=== PATIENT | male | born 1980 | race Caucasian/White ===

== ENCOUNTER 2024-01-03 18:12 | Emergency (ER) | payer OTHER ==
--- NOTE | 2024-01-03 19:12 | RAD REPORT ---
EXAM DESCRIPTION: CT - Head Brain Wo Cont - 01/03/2024 7:06 pm CLINICAL HISTORY: TRAUMA Fall, seizure, trauma, head injury COMPARISON: No comparisons TECHNIQUE: All CT scans are performed using dose optimization technique as appropriate and may inclu de automated exposure control or mA/KV adjustment according to patient size. FINDINGS: No intracranial hemorrhage, hydrocephalus or extra-axial fluid collection.No areas of brai n edema or evidence of midline shift. The paranasal sinuses and mastoids are clear. The calvarium is intact. IMPRESSION: No acute intracranial abnormality.
--- NOTE | 2024-01-03 19:16 | RAD REPORT ---
EXAM DESCRIPTION: CT - Stone Protocol - 01/03/2024 7:06 pm CLINICAL HISTORY: Flank pain. Flank pain;Hematuria COMPARISON: No comparisons TECHNIQUE: Axial images were obtained without oral or IV contrast. Lack of contrast limits solid org an and vascular assessment. The [id number] spans the entirety of the system partially obscuring uppermost abdomen and lung bases. Coronal reformatted images were obtained and reviewed. All CT scans are performed using dose optimization technique as appropriate and may include automated exposure control or mA/KV adjustment according to patient size. FINDINGS: The lower lung catalan are clear. Imaged portions of the liver and spleen show no suspicious findings on non-contrast imaging. The panc reas and adrenal glands are normal. No pathologic lymphadenopathy in the abdomen or pelvis. No urinary tract stones or obstructive uropathy. No bowel obstruction, free air, free fluid or abscess. Normal appendix noted. No significant bony abnormality. IMPRESSION: No urinary tract stones or obstructive uropathy.
[2024-01-03 19:41] LABS: Absolute Monocytes 0.4 K/uL (0.1-1.3); Absolute Neutrophil 4.3 K/uL (1.8-8.0); Basophils % 0.2 % (0-1.3); Eosinophils % 0.2 % (0-4.4); Hematocrit 40.2 % (39.6-49.0); Hemoglobin 13.9 g/dL (13.6-17.9); Lymphocytes % 17.6 % (15.3-44.8); MCH 31.1 pg (27.0-35.0); MCHC 34.5 g/dL (32.0-36.0); MPV 7.2 fL (7.6-11.3); Monocytes % 6.5 % (3.3-12.3); Neutrophils % 75.5 % (41.7-73.7); Nucleated Red Blood Cells % 0.2 % (0-0); Platelets 189 thou/uL (152-406); RBC Red Blood Cell Count 4.47 M/uL (4.33-5.43); Red Cell Distribution Width 13.1 % (12.1-15.2)
[2024-01-03 20:01] LABS: Specific Gravity 1.026 (1.005-1.030); Sqamous Epithelial <5 /HPF (None Seen); Urine Bacteria None Seen /HPF (<20); Urine Bilirubin NEGATIVE (Negative); Urine Blood 1+ (Negative); Urine Clarity Clear (Clear); Urine Color Yellow (Yellow); Urine Culture Reflex Order NOT NEEDED; Urine Glucose NEGATIVE (Negative); Urine Ketones TRACE (Negative); Urine Microscopic Reflex YN ORDER UMIC; Urine Mucus 2+ /HPF (None Seen); Urine Nitrite NEGATIVE (Negative); Urine Protein TRACE (Negative); Urine Urobilinogen Normal (Normal); Urine WBC <5 /HPF (<5)
[2024-01-03 20:09] LABS: Albumin 4.2 g/dL (3.4-5.0); Albumin/Globulin Ratio 1.2 (1.1-1.8); Bilirubin Total 0.8 mg/dL (0.2-1.0); Globulin 3.4 g/dL (2.3-3.5); Protein, Total 7.6 g/dL (6.4-8.2)
--- NOTE | 2024-01-03 20:16 | ER ---
Nurse's Notes [facility] Name: Curt Davis Age: 43 yrs Sex: Male : 1980 Arrival Date: 01/03/2024 Time: 18:12 Bed Treatment Private MD: Diagnosis: Epileptic seizures related to external causes;Unspecified injury of head, initial encounter;Hematuria, unspecified;Laceration without foreign body of scalp-forehead Presentation: 01/02 18:30 Chief complaint: Patient states: pt has a seizure today and hit his head, also c/o as6 right flank pain and blood tinged urine x2 weeks. Coronavirus screen: At this time, the client does not indicate any symptoms associated with coronavirus-19. Ebola Screen: No symptoms or risks identified at this time. Initial Sepsis Screen: Does the patient meet any 2 criteria? No. Patient's initial sepsis screen is negative. Does the patient have a suspected source of infection? No. Patient's initial sepsis screen is negative. Risk Assessment: Do you want to hurt yourself or someone else? Patient reports no desire to harm self or others. Onset of symptoms was January 03, 2024. 18:30 Method Of Arrival: Law Enforcement: [place] [employer] as6 18:30 Acuity: HELENA 3 as6 Triage Assessment: 18:30 General: Appears in no apparent distress. comfortable, Behavior is calm, cooperative. as6 Pain: Complains of pain in head and right flank. EENT: No deficits noted. No signs and/or symptoms were reported regarding the EENT system. Neuro: Level of Consciousness is awake, alert, obeys commands, Oriented to person, place, time, situation, Reports headache. Cardiovascular: Capillary refill < 3 seconds Patient's skin is warm and dry. Respiratory: Respiratory effort is even, unlabored, Respiratory pattern is regular, symmetrical. GI: No deficits noted. No signs and/or symptoms were reported involving the gastrointestinal system. : Reports burning with urination, pain in right flank(s). Derm: Wound noted forehead Wound is abrasion. Musculoskeletal: Circulation, motion, and sensation intact. Historical: - Allergies: 19:53 No Known Allergies; as6 - PMHx: 19:53 Seizure; Asthma; as6 - PSHx: 19:53 None; as6 - Immunization history:: Adult Immunizations up to date. - Infectious Disease History:: Denies. - Social history:: Smoking status: Patient denies any tobacco usage or history of. Screenin:55 [facility] ED Fall Risk Assessment (Adult) History of falling in the last 3 months, as6 including since admission Yes- physiologic fall (2 pts) Confusion or Disorientation No (0 pts) Intoxicated or Sedated No (0 pts) Impaired Gait No (0 pts) Mobility Assist Device Used No (0 pt) Altered Elimination No (0 pt) Score/Fall Risk Level 0 - 2 = Low Risk Oriented to surroundings, Maintained a safe environment, Educated pt \T\ family on fall prevention, incl call for assistance when getting out of bed, Assessed \T\ reinforced patient's understanding of fall precautions, Provided non-skid footwear. Abuse screen: Denies threats or abuse. Denies injuries from another. Nutritional screening: No deficits noted. Tuberculosis screening: No symptoms or risk factors identified. Assessment: 19:56 Reassessment: Patient appears in no apparent distress at this time. Patient and/or as6 family updated on plan of care and expected duration. Pain level reassessed. Patient is alert, oriented x 3, equal unlabored respirations, skin warm/dry/pink. Vital Signs: 18:30 BP 129 / 96; Pulse 67; Resp 18 S; Temp 98.4(O); Pulse Ox 97% on R/A; Weight 71.67 kg as6 (R); Height 5 ft. 9 in. (R); Pain 8/10; 19:56 BP 123 / 73; Pulse 68; Resp 18 S; Pulse Ox 100% on R/A; as6 18:30 Body Mass Index 23.33 (71.67 kg, 175.26 cm) as6 18:30 Pain Scale: Adult as6 ED Course: 18:30 Arm band placed on. as6 18:37 Patient arrived in ED. kb 18:37 [facility]C [facility]. kb 18:37 Damaso Rocha MD is Attending Physician. kb 18:38 Ronal Sheridan RN is Primary Nurse. as6 19:07 CT Head Brain wo Cont In Process Unspecified. EDMS 19:08 CT Stone Protocol In Process Unspecified. EDMS 19:30 Inserted saline lock: 20 gauge in right antecubital area, using aseptic technique. as6 Blood collected. 19:30 Initial lab(s) drawn, by me, sent to lab. Urine collected: clean catch specimen, agustin as6 colored, blood tinged. 19:53 Triage completed. as6 19:55 Bed in low position. Call light in reach. skilled nursing guards at bedside. Client placed on as6 continuous cardiac and pulse oximetry monitoring. NIBP monitoring applied. 20:25 No provider procedures requiring assistance completed. IV discontinued, intact, as6 bleeding controlled, No redness/swelling at site. Pressure dressing applied. 20:25 Provided Education on: follow up. as6 Administered Medications: No medications were administered Medication: 19:55 VIS not applicable for this client. as6 Outcome: 20:15 Discharge ordered by . lubna 20:25 Discharged to Law Enforcement as6 20:25 Condition: stable 20:25 Discharge instructions given to patient, Instructed on discharge instructions, follow up and referral plans. Demonstrated understanding of instructions, follow-up care, 20:25 Patient left the ED. as6 Signatures: Dispatcher [employer] Rossy Coleman, SEED CLEANING MACHINE OPERATOR-C SEED CLEANING MACHINE OPERATOR-Ronal Apple, RN RN as6
--- NOTE | 2024-01-03 20:16 | EDPHYS ---
Physician Documentation [facility] Name: Curt Davis Age: 43 yrs Sex: Male : 1980 Arrival Date: 01/03/2024 Time: 18:12 Bed Treatment Private MD: ED Physician Damaso Rocha HPI: 01/02 21:41 This 43 yrs old Male presents to ER via Law Enforcement with complaints of seizure. kb 21:41 Pt is a 43 year old male with a history of seizures that had a seizure today. Pt states kb his bunkmate told him he hit his head multiple times during the seizure. Pt is supposed to take tegretol, but states he stopped taking it about a month ago because he doesn't like how it makes him feel. States his last seizure was 1.5 weeks ago. This seizure felt similar to previous. Pt also reports right flank pain and hematuria that started about 2 weeks ago. Historical: - Allergies: 19:53 No Known Allergies; as6 - PMHx: 19:53 Seizure; Asthma; as6 - PSHx: 19:53 None; as6 - Immunization history:: Adult Immunizations up to date. - Infectious Disease History:: Denies. - Social history:: Smoking status: Patient denies any tobacco usage or history of. ROS: 21:40 Constitutional: As per HPI kb Exam: 21:40 Constitutional: This is a well developed, well nourished patient who is awake, alert, kb and in no acute distress. Head/Face: Normocephalic, atraumatic. ENT: Moist Mucous membranes Cardiovascular: Regular rate Respiratory: Respirations even and unlabored. No increased work of breathing. Talking in full sentences Abdomen/GI: Soft, non-tender. No distention MS/ Extremity: Pulses equal, no cyanosis. Neurovascular intact. Full, normal range of motion. Neuro: Awake and alert, GCS 15, oriented to person, place, time, and situation. Moves all extremities. Normal gait. 21:40 Skin: injury, laceration(s), the wound is approximately 2 cm(s), of the forehead, that can be described as clean, no foreign body, linear, well approximated, no repair needed, 21:41 Back: CVA tenderness, that is mild, is noted on the right, kb Vital Signs: 18:30 BP 129 / 96; Pulse 67; Resp 18 S; Temp 98.4(O); Pulse Ox 97% on R/A; Weight 71.67 kg as6 (R); Height 5 ft. 9 in. (R); Pain 8/10; 19:56 BP 123 / 73; Pulse 68; Resp 18 S; Pulse Ox 100% on R/A; as6 18:30 Body Mass Index 23.33 (71.67 kg, 175.26 cm) as6 18:30 Pain Scale: Adult as6 MDM: 18:38 Patient medically screened. kb 21:39 Differential diagnosis: seizure, UTI, kidney stone, malignancy, ICH. Data reviewed: kb vital signs, nurses notes. Test considered but Not performed: Other Details antiepileptic medication considered but pt refuses.. 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 Counseling: I had a detailed discussion with the patient and/or guardian regarding the historical points, exam findings, and any diagnostic results supporting the discharge/admit diagnosis, lab results, radiology results, the need for outpatient follow up, a neurologist, to return to the emergency department if symptoms worsen or persist or if there are any questions or concerns that arise at home. 01/02 18:38 Order name: CBC with Diff; Complete Time: 19:45 kb 01/02 18:38 Order name: CMP; Complete Time: 20:12 kb 18 18:38 Order name: Lipase; Complete Time: 20:12 kb 18 18:38 Order name: Urinalysis w/ reflexes; Complete Time: 20:06 kb 18 18:38 Order name: CT Head Brain wo Cont; Complete Time: 19:14 kb 18 18:38 Order name: CT Stone Protocol; Complete Time: 19:20 kb 18 18:38 Order name: IV Saline Lock; Complete Time: 19:50 kb 18 18:38 Order name: Labs collected and sent; Complete Time: 19:50 kb Administered Medications: No medications were administered Disposition Summary: 01/03/24 20:15 Discharge Ordered Notes: Location: Home kb Condition: Stable kb Diagnosis - Epileptic seizures related to external causes kb - Unspecified injury of head, initial encounter kb - Hematuria, unspecified kb - Laceration without foreign body of scalp - forehead kb Followup: kb - With: Emergency Department - When: As needed - Reason: Worsening of condition Followup: kb - With: Private Physician - When: 2 - 3 days - Reason: Recheck today's complaints, Continuance of care, Re-evaluation by your physician Discharge Instructions: - Discharge Summary Sheet kb - Hematuria, Adult kb - Seizure, Adult, [id number] kb - Head Injury, Adult, [id number] kb Forms: - Medication Reconciliation Form kb - Antibiotic Education kb - Prescription Opioid Use kb - Patient Portal Instructions kb - Leadership Thank You Letter kb Signatures: Dispatcher [employer] EDRossy Rai, SUSPENDER CUTTER-C SUSPENDER CUTTER-Ronal Apple, RN RN as6 Corrections: (The following items were deleted from the chart) 18:39 18:39 Head Brain Wo Cont+CT.RAD.BRZ ordered. EDMS EDMS 18:39 18:39 Stone Protocol+CT.RAD.BRZ ordered. EDMS EDMS
[2024-01-03 20:49] VITALS: BP 123/73; TEMP 98.4; O2SAT 100
== END 2024-01-03 20:25 | disposition home or self-care (01) ==
LOC: ER 18:12
DX: G40.509 Epileptic seizures related to external causes, not intractable, without status epilepticus (principal); S01.81XA Laceration without foreign body of other part of head, initial encounter; S09.90XA Unspecified injury of head, initial encounter; R31.9 Hematuria, unspecified
CPT/HCPCS: 36415; 70450; 74176; 76377; 80053; 81001; 83690; 85025